=== PATIENT | male | born 1940 | race Caucasian/White ===

== ENCOUNTER 2019-04-13 13:40 | Emergency (ER) | payer MEDICARE, SELFPAY ==
[2019-04-13 13:46] VITALS: BP 142/71; PULSE 49; RESP 15; TEMP 36.4; O2SAT 94; BMI 29.5
--- NOTE | 2019-04-13 14:07 | DI.RAD.S_ITS ---
PROCEDURE: XR CHEST 1V INDICATIONS: low BP, feels disoriented TECHNIQUE: One view of the chest was acquired. COMPARISON: None. FINDINGS: Surgical changes and devices: None. Lungs and pleura: The basilar opacity may be infiltrate or atelectasis. No pleural effusions or pneumothorax. Mediastinum: Mediastinal contours appear normal. Heart size is normal. Bones and chest wall: No suspicious bony lesions. Overlying soft tissues appear unremarkable. IMPRESSION: Left basilar infiltrate or atelectasis. Dictated by: Adalgisa Cesar M.D. on 04/13/2019 at 13:38 Approved by: Adalgisa Cesar M.D. on 04/13/2019 at 13:41
--- NOTE | 2019-04-13 14:11 | ED.WEAKNESS ---
HPI - Weakness General Chief complaint: Weakness Stated complaint: Blood pressure dropping,feeling disoriented Time Seen by Provider: 04/13/19 14:10 Source: patient and family () Mode of arrival: ambulatory Limitations: no limitations History of Present Illness HPI Narrative: This 78-year-old gentleman who comes to the emergency department complaining of feeling lightheaded, he has not had any syncopal episodes but states he noticed he had a low blood pressure at home and his heart rate has been low when he checked it on a monitor. He states he has felt very tired especially when he tries to exert himself. He denies any chest pain or pressure he states he does get short of breath and feel fatigued when he tries walking upstairs in left stop at the top of the stairs. Denies any nausea no vomiting. He states he has noticed he has been sweaty when he is working but has not had any episodes when he is resting. He has been a little bit constipated, he denies any new urinary issues. No swelling in his lower extremities. Patient has a history of hypertension, dyslipidemia and is on metformin for diabetes, states his A1c is in the 6 range. 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 He does not know if that was atrial fibrillation or something else. This was about 6 months ago. He is on amlodipine and metoprolol. He knows the increased 1 of his medications about a month ago because of the ?irregular heartbeat? but does not know exactly which medication or by how much. They visit [facility] [place], but he lives in [facility]. He sees Dr. Bernal for cardiology. Related Data Home Medications Medication Instructions Recorded Confirmed metformin [Glucophage] 250 mg PO DAILY #0 01/14/13 04/13/19 olmesartan [Benicar] 20 mg PO DAILY #0 01/14/13 04/13/19 amlodipine 5 mg PO DAILY 04/13/19 04/13/19 atorvastatin 20 mg PO DAILY 04/13/19 04/13/19 hydrochlorothiazide 25 mg PO DAILY 04/13/19 04/13/19 losartan 100 mg PO DAILY 04/13/19 04/13/19 Allergies Allergy/AdvReac Type Severity Reaction Status Date / Time No Known Drug Allergies Allergy Verified 04/13/19 13:45 Review of Systems Review of Systems ROS Unobtainable: All systems reviewed & are unremarkable except as noted in HPI and below Constitutional Denies chills, Reports fatigue, Denies fever(s), Denies lethargy and Denies weakness Cardiovascular Denies chest pain, Denies chest pain at rest, Denies diaphoresis, Denies syncope, Denies rapid heart rate, Denies edema, Denies irregular heart rhythm, Denies leg edema, Reports lightheadedness, Denies radiating jaw, neck or arm pain, Denies palpitations, Denies dyspnea, Reports dyspnea on exertion, Denies orthopnea and Reports slow heart rate Respiratory Denies chest congestion, Denies cough, Denies dyspnea, Reports dyspnea on exertion and Denies wheezing Gastrointestinal Gastrointestinal: Denies abdominal pain, Reports constipation, Denies diarrhea, Denies nausea and Denies vomiting Genitourinary Denies hematuria, Denies flank pain, Denies urinary frequency and Denies urinary urgency Neurologic Denies syncope and Denies weakness Endocrine Reports fatigue and Denies palpitations Allergic/Immunologic Denies wheezing [facility] Medical History (Updated 04/13/19 @ 16:53 by Martina López DO) Diabetes (Chronic) Dyslipidemia (Chronic) Hypertension (Chronic) Social History Smoking Status: Former smoker Social History (Updated 04/13/19 @ 14:44 by Martina López DO) marital status: details: Lives in [place]. Smoking Status: Former smoker alcohol intake: current substance use type: marijuana Exam Narrative Exam Narrative: GENERAL: Alert and oriented x three, well-nourished, well-appearing male in no acute distress. HEENT: Head normocephalic, atraumatic, EOMI, pupils reactive, face symmetric, moist mucous membranes NECK: Supple, full range of motion CARDIOVASCULAR: Bradycardic and irregularly irregular rate and rhythm without murmurs, rubs or gallops. No JVD. No swelling in lower extremities. RESPIRATORY: Breath sounds equal bilaterally, no wheezes rales or rhonchi. ABDOMEN: Soft, nontender. Normoactive bowel sounds all 4 quadrants. No guarding or rebound, rigidity, no mass : No CVA tenderness EXTREMITIES: Normal range of motion, no clubbing or edema. Neurovascularly intact NEUROLOGICAL: Cranial nerves II through XII grossly intact. Moving all extremities SKIN: Warm, dry, no petechiae, no rashes or lesions. Initial Vital Signs Initial Vital Signs: Vital Signs Temperature 97.5 F L 04/13/19 13:46 Pulse Rate 49 L 04/13/19 13:46 Respiratory Rate 15 04/13/19 13:46 Blood Pressure 142/71 H 04/13/19 13:46 Pulse Oximetry 94 04/13/19 13:46 Course Orders Ordered: ED Orders 04/13/19 13:52 EKG-12 Lead Stat 04/13/19 14:07 XR chest 1V Stat 04/13/19 14:19 B Type Natriuretic Peptide Stat Complete Blood Count AUTO DIFF Stat Comprehensive Metabolic Panel Stat Prothrombin Time INR Stat Thyroid Stimulating Hormone Stat Troponin & CK Cardiac Panel Stat Discontinued Medications Sodium Chloride (Normal Saline 0.9%) 1,000 mls @ 1,000 mls/hr IV BOLUS ONE Stop: 04/13/19 15:05 Last Infusion: 04/13/19 15:25 Dose: 0 mls/hr Admin: 04/13/19 14:27 Dose: 1,000 mls/hr Vital Signs - 8 hr 04/13/19 13:46 04/13/19 14:37 04/13/19 15:07 Temperature 97.5 F L Pulse Rate 49 L 47 L 34 L Respiratory Rate 15 12 20 Blood Pressure 142/71 H Blood Pressure [Left Arm] 120/66 115/67 Pulse Oximetry 94 97 96 04/13/19 16:00 04/13/19 17:40 04/13/19 18:00 Temperature Pulse Rate 54 L 50 L 56 L Respiratory Rate 18 13 16 Blood Pressure Blood Pressure [Left Arm] 138/87 140/78 147/87 H Pulse Oximetry 99 97 97 MDM - Weakness Lab Data Result diagrams: 04/13/19 14:19 04/13/19 14:19 Lab Results 04/13/19 04/13/19 04/13/19 Range/Units 14:19 14:19 14:19 WBC 6.3 (4.5-11.0) X10^3/uL RBC 5.04 (4.5-5.9) X10^6/uL Hgb 15.7 (13.5-17.5) g/dL Hct 46.2 (41-53) % MCV 91.6 (80-100) fL MCH 31.1 (26-34) PG MCHC 33.9 (30-36) % RDW 14.7 (11.6-14.8) % Plt Count 175 (150-400) X10^3/uL Neut % (Auto) 56.8 (50-75) % Lymph % (Auto) 28.2 (25-40) % [place] % (Auto) 10.0 (3-14) % Eos % (Auto) 4.2 H (2-4) % Baso % (Auto) 0.8 (0-2) % Neut # (Auto) 3600 (8100-3925) /uL Lymph # (Auto) 1800 (7449-1735) /uL [place] # (Auto) 600 (0-900) /uL Eos # (Auto) 300 (0-450) /uL Baso # (Auto) 0 (0-100) /uL PT 11.4 (10.1-12.7) SECONDS INR 1.0 (0.9-1.3) Sodium (137-145) mmol/L Potassium (3.4-5.1) mmol/L Chloride (98-107) mmol/L Carbon Dioxide (22-32) mmol/L BUN (9-20) mg/dL Creatinine (0.66-1.25) mg/dL Estimated GFR (>60) mL/min BUN/Creatinine Ratio (6-22) Glucose (80-110) mg/dL Calcium (8.4-10.2) mg/dL Total Bilirubin (0.2-1.3) mg/dL AST (17-59) IU/L ALT (21-72) IU/L Alkaline Phosphatase (38-126) U/L Total Creatine Kinase (55-170) U/L CK-MB (CK-2) (<2.37) ng/mL CK-MB (CK-2) Rel Index (1.5-5.0) % Troponin I (0.01-0.034) ng/mL B-Natriuretic Peptide 131 H (<100) Total Protein (6.3-8.2) g/dL Albumin (3.5-5.0) g/dL Globulin (1.7-4.1) g/dL Albumin/Globulin Ratio (1.0-2.8) TSH (0.47-4.68) uIU/mL 04/13/19 04/13/19 Range/Units 14:19 14:19 WBC (4.5-11.0) X10^3/uL RBC (4.5-5.9) X10^6/uL Hgb (13.5-17.5) g/dL Hct (41-53) % MCV (80-100) fL MCH (26-34) PG MCHC (30-36) % RDW (11.6-14.8) % Plt Count (150-400) X10^3/uL Neut % (Auto) (50-75) % Lymph % (Auto) (25-40) % [place] % (Auto) (3-14) % Eos % (Auto) (2-4) % Baso % (Auto) (0-2) % Neut # (Auto) (2653-3133) /uL Lymph # (Auto) (0241-0529) /uL [place] # (Auto) (0-900) /uL Eos # (Auto) (0-450) /uL Baso # (Auto) (0-100) /uL PT (10.1-12.7) SECONDS INR (0.9-1.3) Sodium 137 (137-145) mmol/L Potassium 4.1 (3.4-5.1) mmol/L Chloride 102 (98-107) mmol/L Carbon Dioxide 25 (22-32) mmol/L BUN 28 H (9-20) mg/dL Creatinine 1.00 (0.66-1.25) mg/dL Estimated GFR > 60.0 (>60) mL/min BUN/Creatinine Ratio 28.0 H (6-22) Glucose 114 H (80-110) mg/dL Calcium 9.4 (8.4-10.2) mg/dL Total Bilirubin 1.1 (0.2-1.3) mg/dL AST 37 (17-59) IU/L ALT 35 (21-72) IU/L Alkaline Phosphatase 69 (38-126) U/L Total Creatine Kinase 191 H (55-170) U/L CK-MB (CK-2) 3.56 H (<2.37) ng/mL CK-MB (CK-2) Rel Index 1.9 (1.5-5.0) % Troponin I < 0.012 (0.01-0.034) ng/mL B-Natriuretic Peptide (<100) Total Protein 7.0 (6.3-8.2) g/dL Albumin 4.1 (3.5-5.0) g/dL Globulin 2.9 (1.7-4.1) g/dL Albumin/Globulin Ratio 1.4 (1.0-2.8) TSH 1.83 (0.47-4.68) uIU/mL Point of Care Testing Glucose POC 111 Urine Dip Bedside Urine Glucose Negative Bedside Urine Bilirubin - Negative Bedside Urine Ketone - Negative Urine Specific [place] 1.015 Bedside Urine Occult Blood - Negative Bedside Urine pH 6.0 Bedside Urine Protein - Negative Bedside Urine Urobilinogen - Negative Bedside Urine Nitrite - Negative Bedside Urine Leukocytes - Negative Esterase Imaging Data Chest x-ray: Radiologist's impression: [address] [address] XRay Report Signed Patient: Handy Dumont EMR#: [id number] : 1Acct:[id number] Age/Sex: 78 / MDate of Service: 04/13/19 Loc: ED Accession Number: [id number] Procedure: XR chest 1V Ordering Provider: Martina López D.O. PROCEDURE: XR CHEST 1V INDICATIONS: low BP, feels disoriented TECHNIQUE: One view of the chest was acquired. COMPARISON: None. FINDINGS: Surgical changes and devices: None. Lungs and pleura: The basilar opacity may be infiltrate or atelectasis. No pleural effusions or pneumothorax. Mediastinum: Mediastinal contours appear normal. Heart size is normal. Bones and chest wall: No suspicious bony lesions. Overlying soft tissues appear unremarkable. IMPRESSION: Left basilar infiltrate or atelectasis. Dictated by: Adalgisa Cesar M.D. on 04/13/2019 at 13:38 Approved by: Adalgisa Cesar M.D. on 04/13/2019 at 13:41 ECG Data Attestation: I personally reviewed and interpreted this ECG as follows: Prior ECG tracings: not available for review Interpretation: AFib with slow ventricular response with rate of 41 QRS of 92 and QTC of 375. No ST elevation or depression. No priors available for review. MDM Narrative Medical decision making narrative: Patient's heart rate has been between 30 since 50s. Lately has been closer to 50. Patient states he is not taking metoprolol after a return to the room but he is still taking amlodipine. patient has normal CBC, normal INR, BUN is slightly elevated 28 with a glucose of 114. Total creatinine kinase is 191 with a CK-MB elevated 3.56. Troponin is normal less than 0.12 BNP is 131 with no other abnormalities. Chest x-ray shows possible basal opacity could be infiltrate versus atelectasis. Patient has not had any cough cold or congestion, he has been afebrile my suspicion for pneumonia is low and was not treated here in the ED. With patient's shortness of breath with exertion, his AFib with slow ventricular response I feel minimum he needs to be observed. He lives in [place]. If he needs intervention his cardiology team [facility] [place] and we discussed transfer there. I spoke with Dr. Landry at [facility] who accepts for transfer. They will talk with the cardiology team who is the same group that the patient sees as an outpatient. Plan to hold any beta-blockers or calcium channel blockers. Gentle fluids. Atropine is at bedside along with pacer pads. Patient is comfortable with this plan. Discharge Plan Departure Patient Disposition: [facility] Clinical Impression: Atrial fibrillation with slow ventricular response Discharge Date/Time: 04/13/19 18:37 Interventions: ED Discharge Assessment Last Done: 04/13/19 18:37 Prescriptions: No Action olmesartan [Benicar] 20 MG tablet 20 mg PO DAILY Qty: 0 RF: 0 metformin [Glucophage] 500 MG tablet 250 mg PO DAILY Qty: 0 RF: 0 atorvastatin 40 mg tablet 20 mg PO DAILY RF: 0 amlodipine 5 mg tablet 5 mg PO DAILY RF: 0 hydrochlorothiazide 25 mg tablet 25 mg PO DAILY RF: 0 losartan 100 mg tablet 100 mg PO DAILY RF: 0
[2019-04-13] MEDS: SODIUM CHLORIDE 0.9% 1,000 ML 1000 ML IV (14:27)
[2019-04-13 14:29] LABS: Add Manual Diff / Slide Review NO; Basophils Absolute Auto 0 /uL (0-100); Basophils Percent Auto 0.8 % (0-2); Eosinophils Absolute Auto 300 /uL (0-450); Eosinophils Percent Auto 4.2 % (2-4); Hematocrit 46.2 % (41-53); Hemoglobin 15.7 g/dL (13.5-17.5); Lymphocytes Absolute Auto 1800 /uL (1100-4500); Lymphocytes Percent Auto 28.2 % (25-40); Mean Corpuscular HGB Conc 33.9 % (30-36); Mean Corpuscular Hemoglobin 31.1 PG (26-34); Mean Corpuscular Volume 91.6 fL (80-100); Monocytes Absolute Auto 600 /uL (0-900); Neutrophils Absolute Auto 3600 /uL (1500-7000); Neutrophils Percent Auto 56.8 % (50-75); Platelet Count 175 X10^3/uL (150-400); Red Blood Cell Count 5.04 X10^6/uL (4.5-5.9); Red Cell Distribution Width 14.7 % (11.6-14.8); White Blood Cell Count 6.3 X10^3/uL (4.5-11.0)
--- NOTE | 2019-04-13 14:33 | PC.NURSE ---
pacer pads placed on Mr. Dumont and code cart at bedside.
[2019-04-13 14:34] LABS: Prothrombin Time 11.4 SECONDS (10.1-12.7)
[2019-04-13 14:37] VITALS: BP 120/66; PULSE 47; RESP 12; O2SAT 97
--- NOTE | 2019-04-13 14:38 | ED_ITS ---
HPI - Weakness General Chief complaint: Weakness Stated complaint: Blood pressure dropping,feeling disoriented Time Seen by Provider: 04/13/19 14:10 Source: patient and family () Mode of arrival: ambulatory Limitations: no limitations History of Present Illness HPI Narrative: This 78-year-old gentleman who comes to the emergency department complaining of feeling lightheaded, he has not had any syncopal episodes but states he noticed he had a low blood pressure at home and his heart rate has been low when he checked it on a monitor. He states he has felt very tired especially when he tries to exert himself. He denies any chest pain or pressure he states he does get short of breath and feel fatigued when he tries walking upstairs in left stop at the top of the stairs. Denies any nausea no vomiting. He states he has noticed he has been sweaty when he is working but has not had any episodes when he is resting. He has been a little bit constipated, he denies any new urinary issues. No swelling in his lower extremities. Patient has a history of hypertension, dyslipidemia and is on metformin for diabetes, states his A1c is in the 6 range. 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 He does not know if that was atrial fibrillation or something else. This was about 6 months ago. He is on amlodipine and metoprolol. He knows the increased 1 of his medications about a month ago because of the ?irregular heartbeat? but does not know exactly which medication or by how much. They visit [facility], but he lives in [facility]. He sees Dr. Bernal for cardiology. Related Data Home Medications Medication Instructions Recorded Confirmed metformin [Glucophage] 250 mg PO DAILY #0 01/14/13 04/13/19 olmesartan [Benicar] 20 mg PO DAILY #0 01/14/13 04/13/19 amlodipine 5 mg PO DAILY 04/13/19 04/13/19 atorvastatin 20 mg PO DAILY 04/13/19 04/13/19 hydrochlorothiazide 25 mg PO DAILY 04/13/19 04/13/19 losartan 100 mg PO DAILY 04/13/19 04/13/19 Allergies Allergy/AdvReac Type Severity Reaction Status Date / Time No Known Drug Allergies Allergy Verified 04/13/19 13:45 Review of Systems Review of Systems ROS Unobtainable: All systems reviewed & are unremarkable except as noted in HPI and below Constitutional Denies chills, Reports fatigue, Denies fever(s), Denies lethargy and Denies weakness Cardiovascular Denies chest pain, Denies chest pain at rest, Denies diaphoresis, Denies syncope, Denies rapid heart rate, Denies edema, Denies irregular heart rhythm, Denies leg edema, Reports lightheadedness, Denies radiating jaw, neck or arm pain, Denies palpitations, Denies dyspnea, Reports dyspnea on exertion, Denies orthopnea and Reports slow heart rate Respiratory Denies chest congestion, Denies cough, Denies dyspnea, Reports dyspnea on exertion and Denies wheezing Gastrointestinal Gastrointestinal: Denies abdominal pain, Reports constipation, Denies diarrhea, Denies nausea and Denies vomiting Genitourinary Denies hematuria, Denies flank pain, Denies urinary frequency and Denies urinary urgency Neurologic Denies syncope and Denies weakness Endocrine Reports fatigue and Denies palpitations Allergic/Immunologic Denies wheezing [facility] Medical History (Updated 04/13/19 @ 16:53 by Martina López DO) Diabetes (Chronic) Dyslipidemia (Chronic) Hypertension (Chronic) Social History Smoking Status: Former smoker Social History (Updated 04/13/19 @ 14:44 by Martina López DO) marital status: details: Lives in [place]. Smoking Status: Former smoker alcohol intake: current substance use type: marijuana Exam Narrative Exam Narrative: GENERAL: Alert and oriented x three, well-nourished, well- appearing male in no acute distress. HEENT: Head normocephalic, atraumatic, EOMI, pupils reactive, face symmetric, moist mucous membranes NECK: Supple, full range of motion CARDIOVASCULAR: Bradycardic and irregularly irregular rate and rhythm without murmurs, rubs or gallops. No JVD. No swelling in lower extremities. RESPIRATORY: Breath sounds equal bilaterally, no wheezes rales or rhonchi. ABDOMEN: Soft, nontender. Normoactive bowel sounds all 4 quadrants. No guarding or rebound, rigidity, no mass : No CVA tenderness EXTREMITIES: Normal range of motion, no clubbing or edema. Neurovascularly intact NEUROLOGICAL: Cranial nerves II through XII grossly intact. Moving all extremities SKIN: Warm, dry, no petechiae, no rashes or lesions. Initial Vital Signs Initial Vital Signs: Vital Signs Temperature 97.5 F L 04/13/19 13:46 Pulse Rate 49 L 04/13/19 13:46 Respiratory Rate 15 04/13/19 13:46 Blood Pressure 142/71 H 04/13/19 13:46 Pulse Oximetry 94 04/13/19 13:46 Course Orders Ordered: ED Orders 04/13/19 13:52 EKG-12 Lead Stat 04/13/19 14:07 XR chest 1V Stat 04/13/19 14:19 B Type Natriuretic Peptide Stat Complete Blood Count AUTO DIFF Stat Comprehensive Metabolic Panel Stat Prothrombin Time INR Stat Thyroid Stimulating Hormone Stat Troponin & CK Cardiac Panel Stat Discontinued Medications Sodium Chloride (Normal Saline 0.9%) 1,000 mls @ 1,000 mls/hr IV BOLUS ONE Stop: 04/13/19 15:05 Last Infusion: 04/13/19 15:25 Dose: 0 mls/hr Admin: 04/13/19 14:27 Dose: 1,000 mls/hr Vital Signs - 8 hr 04/13/19 13:46 04/13/19 14:37 04/13/19 15:07 Temperature 97.5 F L Pulse Rate 49 L 47 L 34 L Respiratory Rate 15 12 20 Blood Pressure 142/71 H Blood Pressure [Left Arm] 120/66 115/67 Pulse Oximetry 94 97 96 04/13/19 16:00 04/13/19 17:40 04/13/19 18:00 Temperature Pulse Rate 54 L 50 L 56 L Respiratory Rate 18 13 16 Blood Pressure Blood Pressure [Left Arm] 138/87 140/78 147/87 H Pulse Oximetry 99 97 97 MDM - Weakness Lab Data Result diagrams: 04/13/19 14:19 04/13/19 14:19 Lab Results 04/13/19 04/13/19 04/13/19 Range/Units 14:19 14:19 14:19 WBC 6.3 (4.5-11.0) X10^3/uL RBC 5.04 (4.5-5.9) X10^6/uL Hgb 15.7 (13.5-17.5) g/dL Hct 46.2 (41-53) % MCV 91.6 (80-100) fL MCH 31.1 (26-34) PG MCHC 33.9 (30-36) % RDW 14.7 (11.6-14.8) % Plt Count 175 (150-400) X10^3/uL Neut % (Auto) 56.8 (50-75) % Lymph % (Auto) 28.2 (25-40) % Frederick % (Auto) 10.0 (3-14) % Eos % (Auto) 4.2 H (2-4) % Baso % (Auto) 0.8 (0-2) % Neut # (Auto) 3600 (4374-1036) /uL Lymph # (Auto) 1800 (6244-1534) /uL Frederick # (Auto) 600 (0-900) /uL Eos # (Auto) 300 (0-450) /uL Baso # (Auto) 0 (0-100) /uL PT 11.4 (10.1-12.7) SECONDS INR 1.0 (0.9-1.3) Sodium (137-145) mmol/L Potassium (3.4-5.1) mmol/L Chloride (98-107) mmol/L Carbon Dioxide (22-32) mmol/L BUN (9-20) mg/dL Creatinine (0.66-1.25) mg/dL Estimated GFR (>60) mL/min BUN/Creatinine Ratio (6-22) Glucose (80-110) mg/dL Calcium (8.4-10.2) mg/dL Total Bilirubin (0.2-1.3) mg/dL AST (17-59) IU/L ALT (21-72) IU/L Alkaline Phosphatase (38-126) U/L Total Creatine Kinase (55-170) U/L CK-MB (CK-2) (<2.37) ng/mL CK-MB (CK-2) Rel Index (1.5-5.0) % Troponin I (0.01-0.034) ng/mL B-Natriuretic Peptide 131 H (<100) Total Protein (6.3-8.2) g/dL Albumin (3.5-5.0) g/dL Globulin (1.7-4.1) g/dL Albumin/Globulin Ratio (1.0-2.8) TSH (0.47-4.68) uIU/mL 04/13/19 04/13/19 Range/Units 14:19 14:19 WBC (4.5-11.0) X10^3/uL RBC (4.5-5.9) X10^6/uL Hgb (13.5-17.5) g/dL Hct (41-53) % MCV (80-100) fL MCH (26-34) PG MCHC (30-36) % RDW (11.6-14.8) % Plt Count (150-400) X10^3/uL Neut % (Auto) (50-75) % Lymph % (Auto) (25-40) % Frederick % (Auto) (3-14) % Eos % (Auto) (2-4) % Baso % (Auto) (0-2) % Neut # (Auto) (0484-4360) /uL Lymph # (Auto) (3713-2571) /uL Frederick # (Auto) (0-900) /uL Eos # (Auto) (0-450) /uL Baso # (Auto) (0-100) /uL PT (10.1-12.7) SECONDS INR (0.9-1.3) Sodium 137 (137-145) mmol/L Potassium 4.1 (3.4-5.1) mmol/L Chloride 102 (98-107) mmol/L Carbon Dioxide 25 (22-32) mmol/L BUN 28 H (9-20) mg/dL Creatinine 1.00 (0.66-1.25) mg/dL Estimated GFR > 60.0 (>60) mL/min BUN/Creatinine Ratio 28.0 H (6-22) Glucose 114 H (80-110) mg/dL Calcium 9.4 (8.4-10.2) mg/dL Total Bilirubin 1.1 (0.2-1.3) mg/dL AST 37 (17-59) IU/L ALT 35 (21-72) IU/L Alkaline Phosphatase 69 (38-126) U/L Total Creatine Kinase 191 H (55-170) U/L CK-MB (CK-2) 3.56 H (<2.37) ng/mL CK-MB (CK-2) Rel Index 1.9 (1.5-5.0) % Troponin I < 0.012 (0.01-0.034) ng/mL B-Natriuretic Peptide (<100) Total Protein 7.0 (6.3-8.2) g/dL Albumin 4.1 (3.5-5.0) g/dL Globulin 2.9 (1.7-4.1) g/dL Albumin/Globulin Ratio 1.4 (1.0-2.8) TSH 1.83 (0.47-4.68) uIU/mL Point of Care Testing Glucose POC 111 Urine Dip Bedside Urine Glucose Negative Bedside Urine Bilirubin - Negative Bedside Urine Ketone - Negative Urine Specific Raymond 1.015 Bedside Urine Occult Blood - Negative Bedside Urine pH 6.0 Bedside Urine Protein - Negative Bedside Urine Urobilinogen - Negative Bedside Urine Nitrite - Negative Bedside Urine Leukocytes - Negative Esterase Imaging Data Chest x-ray: Radiologist's impression: [address] [id number] XRay Report Signed Patient: Handy Dumont EMR#: [id number] : 1Acct:[id number] Age/Sex: 78 / MDate of Service: 04/13/19 Loc: ED Accession Number: [id number] Procedure: XR chest 1V Ordering Provider: Martina López D.O. PROCEDURE: XR CHEST 1V INDICATIONS: low BP, feels disoriented TECHNIQUE: One view of the chest was acquired. COMPARISON: None. FINDINGS: Surgical changes and devices: None. Lungs and pleura: The basilar opacity may be infiltrate or atelectasis. No pleural effusions or pneumothorax. Mediastinum: Mediastinal contours appear normal. Heart size is normal. Bones and chest wall: No suspicious bony lesions. Overlying soft tissues appear unremarkable. IMPRESSION: Left basilar infiltrate or atelectasis. Dictated by: Adalgisa Cesar M.D. on 04/13/2019 at 13:38 Approved by: Adalgisa Cesar M.D. on 04/13/2019 at 13:41 ECG Data Attestation: I personally reviewed and interpreted this ECG as follows: Prior ECG tracings: not available for review Interpretation: AFib with slow ventricular response with rate of 41 QRS of 92 and QTC of 375. No ST elevation or depression. No priors available for review. MDM Narrative Medical decision making narrative: Patient's heart rate has been between 30 since 50s. Lately has been closer to 50. Patient states he is not taking metoprolol after a return to the room but he is still taking amlodipine. patient has normal CBC, normal INR, BUN is slightly elevated 28 with a glucose of 114. Total creatinine kinase is 191 with a CK-MB elevated 3.56. Troponin is normal less than 0.12 BNP is 131 with no other abnormalities. Chest x-ray shows possible basal opacity could be infiltrate versus atelectasis. Patient has not had any cough cold or congestion, he has been afebrile my suspicion for pneumonia is low and was not treated here in the ED. With patient's shortness of breath with exertion, his AFib with slow ventricular response I feel minimum he needs to be observed. He lives in [place]. If he needs intervention his cardiology team is base through [facility] and we discussed transfer there. I spoke with Dr. Landry at had been [facility] who accepts for transfer. They will talk with the cardiology team who is the same group that the patient sees as an outpatient. Plan to hold any beta-blockers or calcium channel b lockers. Gentle fluids. Atropine is at bedside along with pacer pads. Patient is comfortable with this plan. Discharge Plan Departure Patient Disposition: [facility] Clinical Impression: Atrial fibrillation with slow ventricular response Discharge Date/Time: 04/13/19 18:37 Interventions: ED Discharge Assessment Last Done: 04/13/19 18:37 Prescriptions: No Action olmesartan [Benicar] 20 MG tablet 20 mg PO DAILY Qty: 0 RF: 0 metformin [Glucophage] 500 MG tablet 250 mg PO DAILY Qty: 0 RF: 0 atorvastatin 40 mg tablet 20 mg PO DAILY RF: 0 amlodipine 5 mg tablet 5 mg PO DAILY RF: 0 hydrochlorothiazide 25 mg tablet 25 mg PO DAILY RF: 0 losartan 100 mg tablet 100 mg PO DAILY RF: 0
[2019-04-13 14:39] LABS: Alanine Aminotransferase 35 IU/L (21-72); Albumin 4.1 g/dL (3.5-5.0); Albumin Globulin Ratio 1.4 (1.0-2.8); Alkaline Phosphatase 69 U/L (38-126); Aspartate Aminotransferase 37 IU/L (17-59); Bilirubin Total 1.1 mg/dL (0.2-1.3); Blood Urea Nitrogen 28 mg/dL (9-20); Calcium 9.4 mg/dL (8.4-10.2); Carbon Dioxide 25 mmol/L (22-32); Chloride 102 mmol/L (98-107); Creatine Kinase 191 U/L (55-170); Estimated Glomerular Filt Rate > 60.0 mL/min (>60); Globulin 2.9 g/dL (1.7-4.1); Glucose 114 mg/dL (80-110); Sodium 137 mmol/L (137-145)
[2019-04-13 14:44] LABS: HEMOLYSIS 74 (0-50); Potassium 4.1 mmol/L (3.4-5.1)
[2019-04-13 14:52] LABS: B Type Natriuretic Peptide 131 (<100)
[2019-04-13 14:54] LABS: Troponin I < 0.012 ng/mL (0.01-0.034)
[2019-04-13 14:55] LABS: CKMB % Relative Index 1.9 % (1.5-5.0); Creatine Kinase MB 3.56 ng/mL (<2.37)
[2019-04-13 15:07] VITALS: BP 115/67; PULSE 34; RESP 20; O2SAT 96
[2019-04-13 15:31] LABS: Thyroid Stimulating Hormone 1.83 uIU/mL (0.47-4.68)
[2019-04-13 16:00] VITALS: BP 138/87; PULSE 54; RESP 18; O2SAT 99
[2019-04-13 17:40] VITALS: BP 140/78; PULSE 50; RESP 13; O2SAT 97
[2019-04-13 18:00] VITALS: BP 147/87; PULSE 56; RESP 16; O2SAT 97
== END 2019-04-13 18:37 | disposition short-term general hospital (02) ==
PROVIDERS: Emergency Provider Emergency Medicine
DX: I48.91 Unspecified atrial fibrillation (principal)
CPT/HCPCS: 36591; 71045; 80053; 81003; 82550; 82553; 82962; 83880; 84443; 84484; 85025; 85610; 93005; 93010; 96360; 99284; 99285

== ENCOUNTER → 2020-06-13 11:02 | Outpatient (CLI) | payer MEDICARE, SELFPAY ==
[2020-06-15 11:36] LABS: COVID19 Sendout Not Detected (Not Detected)
== END ==
PROVIDERS: Visit Provider Physician Assistant
DX: Z03.818 Encounter for observation for suspected exposure to other biological agents ruled out (principal)
CPT/HCPCS: 87635